=== PATIENT | female | born 1990 | race Caucasian/White ===

== ENCOUNTER 2020-05-03 05:44 | Day surgery (SDC) | payer BC ==
[~2020-05-03] VITALS: Ht 162.6 cm; Wt 67.3 kg
[~2020-05-03 05:44] MED LIST: BIFI4CAP PO; PREN-1 PO
[2020-05-03 06:22] VITALS: BP 114/80
[2020-05-03] MEDS ORDERED: DOXY25TA18 PO (06:31)
[2020-05-03] MEDS ORDERED: CHOL10003 PO (06:31)
[2020-05-03] MEDS ORDERED: ASPI81TA45 PO (06:31)
[2020-05-03] MEDS ORDERED: LACTATED RINGERS 1,000 ML IV SCH (06:31)
[2020-05-03] MEDS ORDERED: FENTANYL PF 100 MCG/2ML ONE (06:49)
[2020-05-03] MEDS ORDERED: MIDAZOLAM 1 MG/ML, 2ML ONE (06:49)
[2020-05-03] MEDS ORDERED: LIDOCAINE-MPF 1%, 2ML INFIL ONE (07:00)
[2020-05-03] MEDS ORDERED: CHLORHEXIDINE 15 ML UDC MM ONE (07:00)
[2020-05-03 07:09] LABS: BASOPHILS # (AUTO) 0.02 x10^3/uL (0-0.1); BASOPHILS % (AUTO) 0 % (0-1); EOSINOPHILS # (AUTO) 0.04 x10^3/uL (0-0.4); EOSINOPHILS % (AUTO) 1 % (1-7); LYMPHOCYTES % (AUTO) 18 % (22-44); MD NO; MEAN CORPUSCULAR HEMOGLOBIN 30.3 pg (27.0-34.8); MEAN CORPUSCULAR HGB CONC 33.1 g/dL (32.4-35.8); MEAN CORPUSCULAR VOLUME 91.6 fL (80-100); MEAN PLATELET VOLUME 9.1 fL (7.4-10.4); MONOCYTES # (AUTO) 0.27 x10^3/uL (0.2-0.8); MONOCYTES % (AUTO) 4 % (2-9); NEUTROPHILS # (AUTO) 4.58 x10^3/uL (1.8-6.8); NEUTROPHILS % (AUTO) 76 % (42-75); PLATELET COUNT 236 x10^3/uL (130-400); RED BLOOD COUNT 4.88 x10^6/uL (3.82-5.3); RED CELL DISTRIBUTION WIDTH 13.5 % (9.6-15.2)
[2020-05-03] MEDS ORDERED: SCOPOLAMINE 1MG PATCH TD ONE (07:11)
[2020-05-03] MEDS ORDERED: SCOPOLAMINE 1MG PATCH TD STA (07:12)
[2020-05-03] MEDS ORDERED: BUPIVACAINE/PF-EPI 0.25% 1:200K ONE (07:14)
[2020-05-03] MEDS ORDERED: MISOPROSTOL 200 MCG TABLET ONE (07:14)
[2020-05-03] MEDS ORDERED: OXYTOCIN 10 UNITS/ML, 1ML ONE (07:14)
[2020-05-03] MEDS ORDERED: METHYLERGONOVINE 0.2 MG/ML IM ONE (07:15)
[2020-05-03] MEDS ORDERED: SILVER NITRATE STICK TP ONE (07:15)
[2020-05-03] MEDS ORDERED: HYDROcodone/APAP 7.5-325MG/15ML UDC PO PRN (07:30)
[2020-05-03] MEDS ORDERED: HYDROmorphone 1 MG/ML, 1ML INJ IVPush PRN (07:30)
[2020-05-03] MEDS ORDERED: PROMETHAZINE 25 MG/ML, 1ML IVPush PRN (07:30)
[2020-05-03] MEDS ORDERED: OXYcodone 5 MG/5 ML ORAL.SOL UDC PO PRN (07:30)
[2020-05-03] MEDS ORDERED: FENTANYL PF 100 MCG/2ML IV PRN (07:30)
[2020-05-03] MEDS ORDERED: CEFAZOLIN 1,000 MG ONE (08:31)
[2020-05-03] MEDS ORDERED: DEXAMETHASONE 4 MG/ML, 1ML ONE (08:31)
[2020-05-03] MEDS ORDERED: ONDANSETRON 2MG/ML, 2ML ONE (08:31)
[2020-05-03] MEDS ORDERED: PROPOFOL 10 MG/ML, 20ML ONE (08:31)
== END 2020-05-03 10:15 | disposition home or self-care (01) ==
LOC: OUT 05:44
PROVIDERS: ATTEND Obstetrics & Gynecology
DX: O02.1 Missed abortion (principal); Z11.59 Encounter for screening for other viral diseases; G43.909 Migraine, unspecified, not intractable, without status migrainosus; Z79.82 Long term (current) use of aspirin; Z79.899 Other long term (current) drug therapy; Z98.890 Other specified postprocedural states
CPT/HCPCS: 36415; 59820; 85025; 86850; 86870; 86900; 86922; 87635; 88305; J0690; J1100; J2210; J2250; J2405; J2590; J2704; J3010; J7120; 86923